=== PATIENT | male | born 1940 | race Caucasian/White ===

== ENCOUNTER 2018-04-27 10:10 | Day surgery (SDC) | payer MEDICARE, OTHER ==
[~2018-04-27] VITALS: Ht 188 cm; Wt 95.0 kg
[~2018-04-27 10:10] MED LIST: ALLO100 PO; ALLO300 PO; ATOR20 PO; CEPH500 PO; CRUTCH2 USE; DULO60 PO; HYDACE5 PO; LEVSOD100 PO; LEVSOD50 PO; NAPR500 PO; OXYACE5T PO; PRIM250 PO; Percocet 5-3251 EACH PO; SIMV10 PO; Veetids 500500 MG PO; XARELTO10 MG PO
--- NOTE | 2018-04-27 11:04 | NUR ---
04/27/18 1104 Hallie Saenz DRVERS IN TO COMPLETE BLOCK FOR OPERATIVE PROCEDURE. TIME OUT COMPLETE. START 1053, STOP 1100. S T/O.
--- NOTE | 2018-04-27 13:08 | NUR ---
04/27/18 1307 Laverne Lisa 2 PERSON ASSIST INTO RECLINER. PT STILL DROWSY AT THIS TIME HOWEVER ORIENTED X4. AND DAUGHTER AT CHAIRSIDE. PT TOLERATING PO FLUIDS WELL. POLAR PACK IN PLACE. VSS WITH FREQUENT ORIENTATION TO TAKE SLOW, DEEP BREATHS. INCENTIVE SPIROMETER TEACHING PROVIDED TO ASSIST WITH OXYGENATION. PT DENIES PAIN AND NAUSEA AT THIS TIME
== END 2018-04-27 14:02 | disposition home or self-care (01) ==
LOC: ORSCSDS 10:10
PROVIDERS: Orthopaedic Surgery
PROC: 0RNK4ZZ Release Left Shoulder Joint, Percutaneous Endoscopic Approach (ICD-10-PCS; principal; 2018-04-27 11:30)
PROC: 0LQ24ZZ Repair Left Shoulder Tendon, Percutaneous Endoscopic Approach (ICD-10-PCS; principal; 2018-04-27 11:30)
DX: M75.112 Incomplete rotator cuff tear or rupture of left shoulder, not specified as traumatic (principal); M75.22 Bicipital tendinitis, left shoulder; M75.52 Bursitis of left shoulder; E03.9 Hypothyroidism, unspecified; Z99.81 Dependence on supplemental oxygen; Z79.899 Other long term (current) drug therapy
CPT/HCPCS: C1713; J0171; J0690; J1100; J2250; J2405; J2795; J3010; J7120

== ENCOUNTER → 2022-02-25 | Outpatient (CLI) | payer MEDICARE, OTHER ==
[2022-02-25 13:19] LABS: BASOPHILS ABSOLUTE AUTO 0.11 K/mm3 (0.00-0.23); BASOPHILS PERCENT AUTO 1 % (0-2); EOSINOPHILS ABSOLUTE AUTO 0.31 K/mm3 (0.00-0.68); EOSINOPHILS PERCENT AUTO 4 % (0-6); Hematocrit 41.6 % (37.0-53.0); Hemoglobin 13.6 g/dL (13.5-17.5); IMMATURE GRAN ABSOLUTE AUTO 0.04 K/mm3 (0.00-0.10); IMMATURE GRAN PERCENT AUTO 1 % (0-1); LYMPHOCYTES ABSOLUTE AUTO 1.81 K/mm3 (0.84-5.20); LYMPHOCYTES PERCENT AUTO 22 % (21-46); MONOCYTES ABSOLUTE AUTO 1.13 K/mm3 (0.16-1.47); MONOCYTES PERCENT AUTO 14 % (4-13); Mean Corpuscular HGB 33.7 pg (26.0-34.0); Mean Corpuscular HGB Conc 32.7 g/dL (31.5-36.5); Mean Corpuscular Volume 103 fL (80-100); Mean Platelet Volume 10.1 fL (9.1-12.4); NEUTROPHILS ABSOLUTE AUTO 4.87 K/mm3 (1.96-9.15); NEUTROPHILS PERCENT AUTO 59 % (41-73); Platelet Count 340 K/mm3 (150-400); RDW Coefficient Variation 13.4 % (11.7-14.2); RDW Standard Deviation 51.3 fL (35.1-46.3); Red Blood Cell Count 4.03 M/mm3 (4.30-5.90); White Blood Cell Count 8.27 K/mm3 (4.00-11.30)
[2022-02-25 13:26] LABS: Bun/Creatinine Ratio 16.7 (12.0-20.0); Calcium, Blood 9.3 mg/dL (8.5-10.1); Creatinine, Blood 1.08 mg/dL (0.60-1.20); Potassium, Blood 4.9 mmol/L (3.5-5.5)
== END | disposition home or self-care (01) ==
LOC: LAB SHORT 13:16
PROVIDERS: Physician Assistant Medical
DX: R55 Syncope and collapse (principal)
CPT/HCPCS: 80048; 85025

== ENCOUNTER → 2022-08-25 | Outpatient (CLI) | payer MEDICARE, OTHER | LOC: LAB 15:01 → LAB SHORT 15:01 | DX: L03.032 Cellulitis of left toe (principal) | CPT/HCPCS: 87070; 87077; 87147; 87186; 87205 ==

== ENCOUNTER 2023-01-20 08:46 | Day surgery (SDC) | payer MEDICARE, OTHER ==
[~2023-01-20] VITALS: Ht 182.9 cm; Wt 92.5 kg
[2023-01-20] VITALS (17 sets, daily range): BP systolic 102–134; BP diastolic 63–86
[~2023-01-20 08:46] MED LIST changes: +GABA300T24 PO
--- NOTE | 2023-01-20 14:43 | NUR ---
PT TO SURGICAL FLOOR AT APPROXIMATELY 1430 VIA HOSPITAL BED. PT IS POD 0 FOR A L TOTAL KNEE REPLACEMENT. VSS, PT IS DROWSY, BREATHING EVEN AND UNLABORED. PAIN MANAGED PER EMR. PT IS RESTING COMFORTABLY, CALL LIGHT WITHIN REACH.
[2023-01-20] MEDS ORDERED: ELIQUIS5 M2 PO (14:44)
[2023-01-20] MEDS ORDERED: ALLO300 PO (14:46)
--- NOTE | 2023-01-20 17:07 | NUR ---
SHIFT SUMMARY PT POD 0 FOR L TOTAL HIP. PT REPORTS VERY MINIMAL PAIN, HAS BEEN UP TO THE RESTROOM WITH FWW. PT IS EAGER TO AMBULATE, EDUCATED ON USING HIS CALL LIGHT WHEN HE WANTS TO GET UP. PT EXPRESSED UNDERSTANDING OF THIS. PT ALERT AND ORIENTED. VSS, BREATHING EVEN AND UNLABORED. IV PATENT AND SALINE LOCKED. PT RESTING IN CHAIR, CALL LIGHT WITHIN REACH.
[2023-01-21 04:43] VITALS: BP 119/69
--- NOTE | 2023-01-21 05:04 | NUR ---
SHIFT SUMMARY PT POD 0 LEFT TOTAL KNEE, PT HAS RESTED MOST OF THE NIGHT. PT REPORTING MINIMAL PAIN. PAIN HAS BEEN WELL CONTROLLED WITH SCHEDULED MEDS PER EMAR. PT HAS BEEN UP AND AMBULATING IN THE HALLWAY AND HAS VOIDED. POST OP VITALS ARE STABLE, DRESSING C/D/I TO LEFT KNEE. PLAN IS FOR DC TODAY.
[2023-01-21 05:29] LABS: BASOPHILS ABSOLUTE AUTO 0.08 K/mm3 (0.00-0.23); BASOPHILS PERCENT AUTO 1 % (0-2); EOSINOPHILS ABSOLUTE AUTO 0.23 K/mm3 (0.00-0.68); EOSINOPHILS PERCENT AUTO 2 % (0-6); Hematocrit 31.2 % (37.0-53.0); Hemoglobin 10.3 g/dL (13.5-17.5); IMMATURE GRAN ABSOLUTE AUTO 0.04 K/mm3 (0.00-0.10); IMMATURE GRAN PERCENT AUTO 0 % (0-1); LYMPHOCYTES ABSOLUTE AUTO 1.79 K/mm3 (0.84-5.20); LYMPHOCYTES PERCENT AUTO 13 % (21-46); MONOCYTES ABSOLUTE AUTO 1.56 K/mm3 (0.16-1.47); MONOCYTES PERCENT AUTO 11 % (4-13); Mean Corpuscular HGB 34.3 pg (26.0-34.0); Mean Corpuscular Volume 104 fL (80-100); Mean Platelet Volume 10.9 fL (9.1-12.4); NEUTROPHILS ABSOLUTE AUTO 9.99 K/mm3 (1.96-9.15); NEUTROPHILS PERCENT AUTO 73 % (41-73); Platelet Count 304 K/mm3 (150-400); RDW Coefficient Variation 13.6 % (11.7-14.2); RDW Standard Deviation 52.6 fL (35.1-46.3); White Blood Cell Count 13.69 K/mm3 (4.00-11.30)
[2023-01-21 05:52] LABS: Bun/Creatinine Ratio 26.7 (12.0-20.0); Calcium, Blood 8.5 mg/dL (8.5-10.1); Creatinine, Blood 1.05 mg/dL (0.60-1.20); Potassium, Blood 4.4 mmol/L (3.5-5.5)
[2023-01-21 07:34] VITALS: BP 114/74
[2023-01-21] MEDS ORDERED: Percocet 5-3251 EACH PO (09:36)
--- NOTE | 2023-01-21 10:41 | NUR ---
Pt. is sitting up in a chair and is dressed awaiting discharge when he welcomes my visit. Pt. is pleasant. Facilitate a short life review and establish rapport. Pt. displays evidence of awareness and engagement. Pt. verbalizes gratitude for the spiritual care visit.
--- NOTE | 2023-01-21 11:24 | NUR ---
DISCHARGE PT A&OX4, VSS/RA, JEFFERY PO, VOIDING, AMB SBA FWW/GB, UP TO CHAIR/DRESSED, IV DC'D, PAIN MANAGED. DC INS PROVIDED. PT REP UNDERSTANDING THOSE INSTRUCTIONS. LEFT FLOOR VIA WC WITH MEDICAL LAB TECH INSTRUCTOR TO GO HOME WITH DAUGHTER WITH ALL PERSONAL POSSESSIONS INCLUDING AQUACEL DRESSINGS AND NARC SCRIPT.
== END 2023-01-21 11:00 | disposition home or self-care (01) ==
LOC: ORSCMMR 08:46 → ORD 10:00 → ORSCMMR 10:00 → SURS 13:59 → ORSCMMR 01-21 11:00
PROVIDERS: Orthopaedic Surgery
PROC: 0SRD0JA Replacement of Left Knee Joint with Synthetic Substitute, Uncemented, Open Approach (ICD-10-PCS; principal; 2023-01-20 10:00)
DX: M17.12 Unilateral primary osteoarthritis, left knee (principal); I10 Essential (primary) hypertension; I48.91 Unspecified atrial fibrillation; Z79.01 Long term (current) use of anticoagulants; E03.9 Hypothyroidism, unspecified; G62.9 Polyneuropathy, unspecified; Z85.46 Personal history of malignant neoplasm of prostate; F32.A Depression, unspecified; Z79.899 Other long term (current) drug therapy
CPT/HCPCS: 36415; 73560-LT; 80048; 85025; 97110; 97116; 97161; 97530; A9270; C1776; J0171; J0690; J0735; J1100; J1170; J1885; J2704; J2765; J2795; J3010; J7120